=== PATIENT | male | born 1985 | race African-American/Black ===

== ENCOUNTER 2021-08-16 08:54 | Emergency (ER) | payer SELFPAY ==
[~2021-08-16] VITALS: Ht 182.9 cm; Wt 83.9 kg
[2021-08-16] MEDS ORDERED: TETANUS/DIPHTHERIA TOX ADULT 0.5 ML SYR IM ONE (09:15)
[2021-08-16] MEDS ORDERED: BACITRACIN ZINC 0.9GM TP ONE (11:46)
[2021-08-16] MEDS ORDERED: CEPHALEXIN500 MG PO (11:56)
[2021-08-17] MEDS ORDERED: BACITRACIN ZINC 0.9GM TP SCH (09:00)
== END 2021-08-16 12:03 | disposition home or self-care (01) ==
LOC: FSED 09:15
DX: S86.021A Laceration of right Achilles tendon, initial encounter (principal); W20.8XXA Other cause of strike by thrown, projected or falling object, initial encounter; Y92.008 Other place in unspecified non-institutional (private) residence as the place of occurrence of the external cause
CPT/HCPCS: 62270; 90471; 90714; 99284

== ENCOUNTER 2021-08-31 13:15 | Emergency (ER) | payer SELFPAY ==
[~2021-08-31] VITALS: Ht 182.9 cm; Wt 72.6 kg
[~2021-08-31 13:15] MED LIST: CEPHALEXIN500 MG PO
== END 2021-08-31 14:00 | disposition home or self-care (01) ==
LOC: FSED 13:38
DX: Z48.02 Encounter for removal of sutures (principal)
CPT/HCPCS: 99282; S0630